=== PATIENT | male | born 1975 | race African-American/Black ===

== ENCOUNTER 2019-03-24 06:36 | Emergency (ER) | payer BC, OTHER ==
--- NOTE | 2019-03-24 09:55 | RAD ---
RIGHT HAND 3 VIEWS: Date: 03/24/19 HISTORY: Injury, right hand pain. FINDINGS/IMPRESSION: No acute fracture or dislocation is seen. POS: [facility]
== END 2019-03-24 07:23 | disposition home or self-care (01) ==
LOC: MADERS 06:36
DX: S63.501A Unspecified sprain of right wrist, initial encounter (principal); I10 Essential (primary) hypertension; V89.2XXA Person injured in unspecified motor-vehicle accident, traffic, initial encounter

== ENCOUNTER 2020-08-11 13:55 | Emergency (ER) | payer BC | END 2020-08-11 16:00 | disposition home or self-care (01) | LOC: MADERS 13:55 | DX: R51.9 Headache, unspecified (principal); E66.9 Obesity, unspecified; G47.30 Sleep apnea, unspecified | CPT/HCPCS: 99283 ==

== ENCOUNTER 2023-02-13 18:21 | Emergency (ER) | payer BC, OTHER | END 2023-02-13 20:09 | disposition home or self-care (01) | LOC: MADERS 18:21 | DX: S93.402A Sprain of unspecified ligament of left ankle, initial encounter (principal); W55.22XA Struck by cow, initial encounter ==